=== PATIENT | female | born 1995 | race Two or more races ===

== ENCOUNTER 2019-12-25 15:25 | Emergency (ER) | payer SELFPAY ==
[~2019-12-25] VITALS: Ht 162.6 cm; Wt 68.9 kg
[2019-12-25 15:35] VITALS: BP_SYST 68
--- NOTE | 2019-12-25 17:48 | NUR ---
NO ANSWER IN LOBBY
--- NOTE | 2019-12-25 18:27 | NUR ---
NO ANSWER IN LOBBY
--- NOTE | 2019-12-25 18:56 | NUR ---
nil x 3
== END 2019-12-25 18:59 | disposition left against medical advice (07) ==
LOC: ED 18:50
DX: T19.2XXA Foreign body in vulva and vagina, initial encounter (principal); X58.XXXA Exposure to other specified factors, initial encounter; Y93.89 Activity, other specified; Y92.89 Other specified places as the place of occurrence of the external cause; Y99.8 Other external cause status
CPT/HCPCS: 99281